=== PATIENT | female | born 1985 | race Caucasian/White ===

== ENCOUNTER 2018-09-30 23:01 | Emergency (ER) | payer OTHER ==
--- NOTE | 2018-10-01 00:01 | ED ---
General Adult HPI - General Source: patient, RN notes reviewed, old records reviewed Mode of arrival: ambulatory Limitations: no limitations <Ab Del Cid - Last Filed: 10/01/18 03:17> <Keisha Watson - Last Filed: 10/01/18 06:08> - General Chief complaint: Weakness Stated complaint: recheck Time Seen by Provider: 09/30/18 23:27 - History of Present Illness Initial comments: 32-year-old female patient no pertinent past medical history presents to ED with chief complaint of proximal 6 weeks of increased sleepiness. Patient reports that she used to sleep approximately 8 hours per night. Patient reports that she is able to easily sleep approximately 12 hours per night. Patient is asymptomatic otherwise. Denies any cough congestion, fevers chills, nausea vomiting diarrhea, chest pain, shortness of breath. Patient states that she is not . Systemic: Pt denies myalgia, fever/chills, rash. Pt denies weakness, night sweats, weight loss. Neuro: Pt denies headache, visual disturbances, syncope or pre-syncope. HEENT: Pt denies ocular discharge or irritation, otalgia, rhinorrhea, pharyngiti s or notable lymphadenopathy. Cardiopulmonary: Pt denies chest pain, SOB, heart palpitations, dyspnea on exertion. Abdominal/GI: Pt denies abdominal pain, n/v/d. : Pt denies dysuria, burning w/ urination, frequency/urgency. Denies new onset urinary or bowel incontinence. MSK: Pt denies myalgia, loss of strength or function in extremities. Neuro: Pt denies new onset weakness, paresthesias. (Ab Del Cid) - Related Data Home Medications Medication Instructions Recorded Confirmed Acetaminophen Tab [Tylenol Tab] 1,000 mg PO Q6HR PRN 03/29/16 03/29/16 Ibuprofen [Motrin] 400 mg PO Q6HR PRN 03/29/16 03/29/16 Previous Rx's Medication Instructions Recorded Ibuprofen [Motrin] 600 mg PO Q6HR PRN #40 day 03/29/16 Metoclopramide HCl [Reglan] 10 mg PO Q6HR PRN #5 day 03/29/16 Allergies Allergy/AdvReac Type Severity Reaction Status Date / Time aspirin Allergy Unknown Verified 09/30/18 23:05 codeine Allergy Unknown Verified 09/30/18 23:05 diphenhydramine Allergy Unknown Verified 09/30/18 23:05 [From Triaminic Allergy] Penicillins Allergy Unknown Verified 09/30/18 23:05 Review of Systems ROS Other: All systems not noted in ROS Statement are negative. <Ab Del Cid - Last Filed: 10/01/18 03:17> ROS Other: All systems not noted in ROS Statement are negative. <WalterKeisha P - Last Filed: 10/01/18 06:08> ROS Statement: Those systems with pertinent positive or pertinent negative responses have been documented in the HPI. Past Medical History Past Medical History: Asthma History of Any Multi-Drug Resistant Organisms: None Reported Past Surgical History: Tubal Ligation Past Psychological History: No Psychological Hx Reported Smoking Status: Current every day smoker Past Alcohol Use History: None Reported Past Drug Use History: Marijuana <Ab Del Cid - Last Filed: 10/01/18 03:17> General Exam Limitations: no limitations <Ab Del Cid - Last Filed: 10/01/18 03:17> - General Exam Comments Initial Comments: Constitutional: NAD, AOX3, Pt has pleasant affect. HEENT: NC/AT, trachea midline, neck supple, no lymphadenopathy. Posterior pharynx non erythematous, without exudates. External ears appear normal, without discharge. Mucous membranes moist. Eyes PERRLA, EOM intact. There is no scleral icterus. No pallor noted. Cardiopulmonary: RRR, no murmurs, rubs or gallops, no JVD noted. Lungs CTAB in anterior and posterior domingo. No peripheral edema. Abdominal exam: Abdomen soft and non-distended. Abdomen non-tender to palpation in all 4 quadrants. Bowel sounds active in LLQ. No hepatosplenomegaly. No ecchymosis Neuro: CN II-XII grossly intact. No nuchal rigidity. MSK: No posterior calf tenderness bilaterally, homans sign negative bilaterally. Posterior tibialis and radial pulse +2 bilaterally. Sensation intact in upper and lower extremities. Full active ROM in upper and lower extremities, 5/5 stregnth. (Ab Del Cid) Course Vital Signs 09/30/18 10/01/18 23:05 02:18 Temperature 97.7 F 97.6 F Pulse Rate 100 84 Respiratory 16 20 Rate Blood Pressure 130/80 116/60 O2 Sat by Pulse 100 97 Oximetry Medical Decision Making - Lab Data Result diagrams: 10/01/18 00:00 10/01/18 00:00 - EKG Data -: EKG Interpreted by Me <Ab Del Cid - Last Filed: 10/01/18 03:17> - Lab Data Result diagrams: 10/01/18 00:00 10/01/18 00:00 <Keisha Watson - Last Filed: 10/01/18 06:08> - Medical Decision Making 32-year-old female patient no pertinent past medical history presents to ED with chief complaint of proximal 6 weeks of increased sleepiness. Patient reports that she used to sleep approximately 8 hours per night. Patient reports that she is able to easily sleep approximately 12 hours per night. Patient is asym ptomatic otherwise. Denies any cough congestion, fevers chills, nausea vomiting diarrhea, chest pain, shortness of breath. Patient states that she is not . Patient vital signs stable, afebrile. Physical exam did not display acute pathology. Laboratory investigations revealed nonimpressive CBC, CMP. Heterophile is negative, TSH within normal limits. EKG not concerning for acute ischemia. (Ab Del Cid) I was available for consultation in the emergency department. The history and physical exam were done by the midlevel provider. I was consulted for this patient's care. I reviewed the case with the midlevel provider and based on their presentation of the patient, I agree with the assessment, medical decision making and plan of care as documented. Chart was dictated using [employer] dictation software. Attempts were made to correct any dictation errors however some typographical errors may persist. (Keisha Watson) - Lab Data Lab Results 10/01/18 10/01/18 10/01/18 Range/Units 00:00 00:00 00:00 WBC 6.1 (3.8-10.6) k/uL RBC 4.61 (3.80-5.40) m/uL Hgb 14.2 (11.4-16.0) gm/dL Hct 43.0 (34.0-46.0) % MCV 93.1 (80.0-100.0) fL MCH 30.8 (25.0-35.0) pg MCHC 33.1 (31.0-37.0) g/dL RDW 13.7 (11.5-15.5) % Plt Count 164 (150-450) k/uL Neutrophils % 64 % Lymphocytes % 23 % Monocytes % 7 % Eosinophils % 3 % Basophils % 1 % Neutrophils # 3.9 (1.3-7.7) k/uL Lymphocytes # 1.4 (1.0-4.8) k/uL Monocytes # 0.5 (0-1.0) k/uL Eosinophils # 0.2 (0-0.7) k/uL Basophils # 0.1 (0-0.2) k/uL Sodium 139 (137-145) mmol/L Potassium 4.3 (3.5-5.1) mmol/L Chloride 108 H (98-107) mmol/L Carbon Dioxide 27 (22-30) mmol/L Anion Gap 4 mmol/L BUN 11 (7-17) mg/dL Creatinine 0.58 (0.52-1.04) mg/dL Est GFR (CKD-EPI)AfAm >90 (>60 ml/min/1.73 sqM) Est GFR (CKD-EPI)NonAf >90 (>60 ml/min/1.73 sqM) Glucose 90 (74-99) mg/dL Calcium 9.2 (8.4-10.2) mg/dL Total Bilirubin 0.3 (0.2-1.3) mg/dL AST 19 (14-36) U/L ALT 19 (9-52) U/L Alkaline Phosphatase 66 (38-126) U/L Total Protein 6.2 L (6.3-8.2) g/dL Albumin 4.0 (3.5-5.0) g/dL TSH 1.820 (0.465-4.680) mIU/L Urine Color Urine Appearance (Clear) Urine pH (5.0-8.0) Ur Specific Emmons (1.001-1.035) Urine Protein (Negative) Urine Glucose (UA) (Negative) Urine Ketones (Negative) Urine Blood (Negative) Urine Nitrite (Negative) Urine Bilirubin (Negative) Urine Urobilinogen (<2.0) mg/dL Ur Leukocyte Esterase (Negative) Heterophile Antibody Negative (Negative) 10/01/18 Range/Units 01:20 WBC (3.8-10.6) k/uL RBC (3.80-5.40) m/uL Hgb (11.4-16.0) gm/dL Hct (34.0-46.0) % MCV (80.0-100.0) fL MCH (25.0-35.0) pg MCHC (31.0-37.0) g/dL RDW (11.5-15.5) % Plt Count (150-450) k/uL Neutrophils % % Lymphocytes % % Monocytes % % Eosinophils % % Basophils % % Neutrophils # (1.3-7.7) k/uL Lymphocytes # (1.0-4.8) k/uL Monocytes # (0-1.0) k/uL Eosinophils # (0-0.7) k/uL Basophils # (0-0.2) k/uL Sodium (137-145) mmol/L Potassium (3.5-5.1) mmol/L Chloride (98-107) mmol/L Carbon Dioxide (22-30) mmol/L Anion Gap mmol/L BUN (7-17) mg/dL Creatinine (0.52-1.04) mg/dL Est GFR (CKD-EPI)AfAm (>60 ml/min/1.73 sqM) Est GFR (CKD-EPI)NonAf (>60 ml/min/1.73 sqM) Glucose (74-99) mg/dL Calcium (8.4-10.2) mg/dL Total Bilirubin (0.2-1.3) mg/dL AST (14-36) U/L ALT (9-52) U/L Alkaline Phosphatase (38-126) U/L Total Protein (6.3-8.2) g/dL Albumin (3.5-5.0) g/dL TSH (0.465-4.680) mIU/L Urine Color Light Yellow Urine Appearance Clear (Clear) Urine pH 6.5 (5.0-8.0) Ur Specific Emmons 1.009 (1.001-1.035) Urine Protein Negative (Negative) Urine Glucose (UA) Negative (Negative) Urine Ketones Negative (Negative) Urine Blood Negative (Negative) Urine Nitrite Negative (Negative) Urine Bilirubin Negative (Negative) Urine Urobilinogen <2.0 (<2.0) mg/dL Ur Leukocyte Esterase Negative (Negative) Heterophile Antibody (Negative) - EKG Data EKG Comments: Ventricular rate 74, painful 140, QRS 74. QT/QTc 394/ 437. Normal sinus rhythm. No concern for acute ischemia. (Ab Del Cid) Disposition Is patient prescribed a controlled substance at d/c from ED?: No <Ab Del Cid - Last Filed: 10/01/18 03:17> <Keisha Watson - Last Filed: 10/01/18 06:08> Clinical Impression: Fatigue Disposition: HOME SELF-CARE Condition: Stable Instructions (If sedation given, give patient instructions): Fatigue (ED) Additional Instructions: Patient to adhere to previously discussed treatment plan and will take medication(s) as directed. Patient to follow up with PCP in 1-2 days. Patient to return to ED if symptoms do not improve. Follow-up with primary care brother 1-2 days. [facility] Return to ER if condition worsens in any way. Referrals: None,Stated [Primary Care Provider] - 1-2 days [facility] [NON-STAFF] - 1-2 days
[2018-10-01 00:16] LABS: Basophils # (A) 0.1 k/uL (0-0.2); Basophils % (A) 1 %; Eosinophils # (A) 0.2 k/uL (0-0.7); Eosinophils % (A) 3 %; HGB 14.2 gm/dL (11.4-16.0); Lymphocytes # (A) 1.4 k/uL (1.0-4.8); Lymphocytes % (A) 23 %; MCH 30.8 pg (25.0-35.0); MCHC 33.1 g/dL (31.0-37.0); MCV 93.1 fL (80.0-100.0); Mean Platelet Volume 8.8; Monocytes # (A) 0.5 k/uL (0-1.0); Monocytes % (A) 7 %; Neutrophils # (A) 3.9 k/uL (1.3-7.7); Neutrophils % (A) 64 %; Platelet Count 164 k/uL (150-450); RBC 4.61 m/uL (3.80-5.40); RDW 13.7 % (11.5-15.5); WBC 6.1 k/uL (3.8-10.6)
[2018-10-01 00:26] LABS: ALT 19 U/L (9-52); AST 19 U/L (14-36); Alkaline Phosphatase 66 U/L (38-126); Anion Gap 4 mmol/L; Blood Urea Nitrogen 11 mg/dL (7-17); Calcium 9.2 mg/dL (8.4-10.2); Carbon Dioxide 27 mmol/L (22-30); Chloride 108 mmol/L (98-107); Glucose 90 mg/dL (74-99); Potassium 4.3 mmol/L (3.5-5.1); Sodium 139 mmol/L (137-145); Total Bilirubin 0.3 mg/dL (0.2-1.3); Total Protein 6.2 g/dL (6.3-8.2)
[2018-10-01 01:30] LABS: Appearance,Urine Clear (Clear); Bilirubin,Urine Negative (Negative); Blood,Urine Negative (Negative); Color,Urine Light Yellow; Glucose,Urine (UA) Negative (Negative); Ketones,Urine Negative (Negative); Leukocyte Esterase,Urine Negative (Negative); Nitrite,Urine Negative (Negative); PH, Urine 6.5 (5.0-8.0); Protein,Urine Negative (Negative); Specific Gravity,Urine 1.009 (1.001-1.035); Urobilinogen,Urine <2.0 mg/dL (<2.0)
[2018-10-01 02:20] VITALS: BP 116/60; PULSE 84; RESP 20; TEMP 97.6
== END 2018-10-01 02:21 | disposition home or self-care (01) ==
LOC: EC 23:01
DX: R53.83 Other fatigue (principal); F17.200 Nicotine dependence, unspecified, uncomplicated; Z88.5 Allergy status to narcotic agent; Z88.6 Allergy status to analgesic agent; Z88.0 Allergy status to penicillin; Z88.8 Allergy status to other drugs, medicaments and biological substances
CPT/HCPCS: 36415; 80053; 81003; 84443; 85025; 86308; 93005; 99285

== ENCOUNTER 2020-05-04 15:38 | Emergency (ER) | payer OTHER ==
[2020-05-04] MEDS: GELATIN SPONGE,ABSORB (SMALL) 1 EACH SPONGE TOPICAL STA ×2 (16:34→16:54)
--- NOTE | 2020-05-04 16:44 | ED ---
General Adult HPI - General Chief complaint: Wound/Laceration Stated complaint: Finger laceration Time Seen by Provider: 05/04/20 16:04 Source: patient Mode of arrival: ambulatory Limitations: no limitations - History of Present Illness Initial comments: 34-year-old female with a past medical history of asthma presents to the emergency room for finger injury. Patient states that earlier this morning around 8:45 AM patient got her finger stuck in a bathroom door. She states that tip of her finger came off along with the nail. Patient went to [facility] where patient reports they attempted to cauterize the area and referred her to orthopedics. Patient reports that it would not stop bleeding after she left and the orthopedic physician she was referred to does not see hand injuries. Patient then presented to this emergency room. She reports her tetanus is up-to-date in the past 5 years. - Related Data Home Medications Medication Instructions Recorded Confirmed Acetaminophen Tab [Tylenol Tab] 1,000 mg PO Q6HR PRN 03/29/16 03/29/16 Ibuprofen [Motrin] 400 mg PO Q6HR PRN 03/29/16 03/29/16 Previous Rx's Medication Instructions Recorded Ibuprofen [Motrin] 600 mg PO Q6HR PRN #40 day 03/29/16 Metoclopramide HCl [Reglan] 10 mg PO Q6HR PRN #5 day 03/29/16 Allergies Allergy/AdvReac Type Severity Reaction Status Date / Time aspirin Allergy Unknown Verified 09/30/18 23:05 codeine Allergy Unknown Verified 09/30/18 23:05 diphenhydramine Allergy Unknown Verified 09/30/18 23:05 [From Triaminic Allergy] Penicillins Allergy Unknown Verified 09/30/18 23:05 Sulfa (Sulfonamide Allergy Swelling Verified 05/04/20 15:43 Antibiotics) Review of Systems ROS Statement: Those systems with pertinent positive or pertinent negative responses have been documented in the HPI. ROS Other: All systems not noted in ROS Statement are negative. Past Medical History Past Medical History: Asthma History of Any Multi-Drug Resistant Organisms: None Reported Past Surgical History: Tubal Ligation Past Psychological History: No Psychological Hx Reported Smoking Status: Current every day smoker Past Alcohol Use History: None Reported Past Drug Use History: Marijuana General Exam Limitations: no limitations General appearance: alert, in no apparent distress Head exam: Present: atraumatic, normocephalic, normal inspection Eye exam: Present: normal appearance, PERRL, EOMI. Absent: scleral icterus, conjunctival injection, periorbital swelling ENT exam: Present: normal exam, mucous membranes moist Neck exam: Present: normal inspection, full ROM. Absent: tenderness, meningismus, lymphadenopathy Respiratory exam: Present: normal lung sounds bilaterally. Absent: respiratory distress, wheezes, rales, rhonchi, stridor Cardiovascular Exam: Present: regular rate, normal rhythm, normal heart sounds. Absent: systolic murmur, diastolic murmur, rubs, gallop, clicks Extremities exam: Present: full ROM (Full range motion of the right fourth digit), normal capillary refill (Capillary refill less than 2 seconds in the right fourth digit.), other (Patient does have distal avulsion injury to the finger tripped of the right fourth digit with clot in place. Slight bleeding noted.) Course Vital Signs 05/04/20 15:39 Temperature 98.5 F Pulse Rate 135 H Respiratory 20 Rate Blood Pressure 154/92 O2 Sat by Pulse 98 Oximetry Medical Decision Making - Medical Decision Making Reports were reviewed. Patient was given tramadol and Keflex. X-ray did not reveal any fractures however laceration did extend to the tuft. It was cleaned thoroughly and there emergency room according to reports. Physical exam performed today did reveal avulsion injury of the right fourth digit. No evidence for injury to the bone however patient was started on Keflex by previous facility which she is recommended to continue. We did soak the finger. Bleeding did resolve while in the emergency room. I did remove some of the clot however left the base of the contact. This continued to not bleed. The patient was wrapped with tube gauze and [facility] which does in fact have hand surgery and staph. It was recommended that she follow up with them this week. She will return here for any worsening symptoms. Disposition Clinical Impression: Avulsion of finger tip Disposition: HOME SELF-CARE Condition: Good Instructions (If sedation given, give patient instructions): Skin Avulsion (ED) Additional Instructions: Please take antibiotics as prescribed. Please take tylenol for pain. You were prescribed tramadol by [facility] Jordan for pain as well that he should not table driving. [facility], they do have a hand surgeon on staff. Return to the emergency room for any worsening symptoms. Is patient prescribed a controlled substance at d/c from ED?: No Referrals: Clarence Doan DO [Doctor of Osteopathic Medicine] - 1-2 days Time of Disposition: 17:00
[2020-05-04] MEDS ORDERED: BACITRACIN OINT 1 EACH PACKET TOPICAL STA (16:55)
[2020-05-04 17:07] VITALS: BP 128/69; PULSE 78; RESP 18; TEMP 98.7
== END 2020-05-04 17:07 | disposition home or self-care (01) ==
LOC: EC 15:38
DX: S69.81XA Other specified injuries of right wrist, hand and finger(s), initial encounter (principal); F17.200 Nicotine dependence, unspecified, uncomplicated; Z88.0 Allergy status to penicillin; Z88.2 Allergy status to sulfonamides; Z88.5 Allergy status to narcotic agent; Z88.6 Allergy status to analgesic agent; Z88.8 Allergy status to other drugs, medicaments and biological substances; W23.0XXA Caught, crushed, jammed, or pinched between moving objects, initial encounter; Y92.002 Bathroom of unspecified non-institutional (private) residence as the place of occurrence of the external cause
CPT/HCPCS: 99282

== ENCOUNTER 2020-05-15 01:24 | Emergency (ER) | payer OTHER ==
[2020-05-15 01:36] VITALS: RESP 19
--- NOTE | 2020-05-15 02:32 | ED ---
Recheck HPI - General Chief Complaint: Extremity Problem,Nontraumatic Stated Complaint: Finger injury recheck Time Seen by Provider: 05/15/20 01:37 Source: patient, RN notes reviewed, old records reviewed Mode of arrival: ambulatory - History of Present Illness Initial Comments: This is a 34-year-old female to the ER for evaluation of wound. Patient is wound recheck of finger avulsion, fingertip secondary to shoveling her hand in car door. She did have a fingertip avulsion injury has been healing by secondary intent states his been healing well but she ran out of for dressing changes and came in the ER for dressing change as well as reevaluation MD Complaint: wound re-check -: days(s) Returns Today for: burn recheck (Patient has of also fingertip), persistent/worsening pain related to initial visit Symptoms Since Prior Visit: worsening pain Context: ran out of medication (Patient is out of bandages at home) Associated Symptoms: none Treatments Prior to Arrival: Given Pain Meds on - Related Data Home Medications Medication Instructions Recorded Confirmed Acetaminophen Tab [Tylenol Tab] 1,000 mg PO Q6HR PRN 03/29/16 03/29/16 Ibuprofen [Motrin] 400 mg PO Q6HR PRN 03/29/16 03/29/16 Previous Rx's Medication Instructions Recorded Ibuprofen [Motrin] 600 mg PO Q6HR PRN #40 day 03/29/16 Metoclopramide HCl [Reglan] 10 mg PO Q6HR PRN #5 day 03/29/16 Allergies Allergy/AdvReac Type Severity Reaction Status Date / Time aspirin Allergy Unknown Verified 05/15/20 01:35 codeine Allergy Unknown Verified 05/15/20 01:35 diphenhydramine Allergy Unknown Verified 05/15/20 01:35 [From Triaminic Allergy] Penicillins Allergy Unknown Verified 05/15/20 01:35 Sulfa (Sulfonamide Allergy Swelling Verified 05/15/20 01:35 Antibiotics) Review of Systems ROS Statement: Those systems with pertinent positive or pertinent negative responses have been documented in the HPI. ROS Other: All systems not noted in ROS Statement are negative. Past Medical History Past Medical History: Asthma History of Any Multi-Drug Resistant Organisms: None Reported Past Surgical History: Tubal Ligation Past Psychological History: No Psychological Hx Reported Smoking Status: Current every day smoker Past Alcohol Use History: None Reported Past Drug Use History: Marijuana General Exam - General Exam Comments Initial Comments: Right index fingertip avulsion General appearance: alert, in no apparent distress Head exam: Present: atraumatic, normocephalic, normal inspection Eye exam: Present: normal appearance, PERRL, EOMI. Absent: scleral icterus, conjunctival injection, periorbital swelling ENT exam: Present: normal exam, mucous membranes moist Neck exam: Present: normal inspection. Absent: tenderness, meningismus, lymphadenopathy Respiratory exam: Present: normal lung sounds bilaterally. Absent: respiratory distress, wheezes, rales, rhonchi, stridor Cardiovascular Exam: Present: regular rate, normal rhythm, normal heart sounds. Absent: systolic murmur, diastolic murmur, rubs, gallop, clicks GI/Abdominal exam: Present: soft, normal bowel sounds. Absent: distended, tenderness, guarding, rebound, rigid Extremities exam: Present: normal inspection, full ROM, normal capillary refill. Absent: tenderness, pedal edema, joint swelling, calf tenderness Back exam: Present: normal inspection Neurological exam: Present: alert, oriented X3, CN II-XII intact Psychiatric exam: Present: normal affect, normal mood Skin exam: Present: warm, dry, intact, normal color. Absent: rash Course Vital Signs 05/15/20 05/15/20 01:31 03:00 Temperature 98 F 98.1 F Pulse Rate 120 H 106 H Respiratory 19 19 Rate Blood Pressure 149/83 143/81 O2 Sat by Pulse 99 98 Oximetry - Reevaluation(s) Reevaluation #1: Medical record is reviewed Patient is informed of results here in the ER and questions are answered Patient spoken with, feeling better, symptoms remained improved Patient is okay for discharge Medical Decision Making - Medical Decision Making 34 female with no significant signs of infection. Patient given bandage change here in the ER and can be discharged home Disposition Clinical Impression: Avulsion of finger tip, Encounter for wound re-check Disposition: HOME SELF-CARE Condition: Good Instructions (If sedation given, give patient instructions): Acute Wound Care (ED), Chronic Wound Care (ED) Is patient prescribed a controlled substance at d/c from ED?: No Referrals: None,Stated [Primary Care Provider] - 1-2 days
[2020-05-15 04:16] VITALS: BP 143/81; PULSE 106; TEMP 98.1
== END 2020-05-15 03:01 | disposition home or self-care (01) ==
LOC: EC 01:24
DX: Z48.00 Encounter for change or removal of nonsurgical wound dressing (principal); S61.200D Unspecified open wound of right index finger without damage to nail, subsequent encounter; Z88.5 Allergy status to narcotic agent; Z88.6 Allergy status to analgesic agent; Z88.0 Allergy status to penicillin; Z88.2 Allergy status to sulfonamides; Z88.8 Allergy status to other drugs, medicaments and biological substances; F17.200 Nicotine dependence, unspecified, uncomplicated; W23.0XXD Caught, crushed, jammed, or pinched between moving objects, subsequent encounter
CPT/HCPCS: 99283